=== PATIENT | male | born 1965 | race Hispanic/Latino ===

== ENCOUNTER → 2019-01-18 | Outpatient (CLI) | payer BC | END | disposition home or self-care (01) | LOC: SHCH 09:52 | PROVIDERS: ATTEND Internal Medicine Cardiovascular Disease | DX: I11.9 Hypertensive heart disease without heart failure (principal) | CPT/HCPCS: 93306 ==

== ENCOUNTER 2020-01-29 15:23 | Inpatient (IN) | payer BC ==
[~2020-01-29] VITALS: Ht 180.3 cm; Wt 87.6 kg
[2020-01-29 16:10] LABS: BASOPHILS % (AUTO) 0.2 % (0.0-5.0); EOSINOPHILS % (AUTO) 0.1 % (0.0-8.0); HEMATOCRIT 45.7 % (42-54); LYMPHOCYTES % (AUTO) 4.7 % (21.0-51.0); MEAN CORPUSCULAR HEMOGLOBIN 26.1 pg (27.0-33.0); MEAN CORPUSCULAR HGB CONC 33.7 g/dL (32.0-36.0); MEAN CORPUSCULAR VOLUME 77.5 fL (79-99); MONOCYTES % (AUTO) 2.5 % (3.0-13.0); NEUTROPHILS % (AUTO) 92.3 % (40.0-77.0); PLATELET COUNT (AUTO) 323 K/uL (130-400); RED CELL DISTRIBUTION WIDTH 14.2 % (11.0-15.5); WHITE BLOOD COUNT (AUTO) 15.6 K/uL (4.8-10.8)
[2020-01-29 16:25] LABS: INR 0.94 (0.85-1.15); PARTIAL THROMBOPLASTIN TIME 30.7 SEC (26.3-35.5); PROTHROMBIN TIME 10.2 SEC (9.6-11.6)
[2020-01-29] MEDS ORDERED: AZITHROMYCIN 500MG+NS 250ML 250 ML IV ONE (16:28)
[2020-01-29] MEDS ORDERED: CEFTRIAXONE SODIUM 1 GM ONE (16:28)
[2020-01-29] MEDS ORDERED: DEXAMETHASONE SOD PHOSPHATE 4 MG/ML 1ML VIAL ONE (16:28)
[2020-01-29] MEDS ORDERED: SODIUM CHLORIDE 0.9% 1000ML 1,000 ML IV ONE (16:28)
[2020-01-29 16:29] LABS: CARBON DIOXIDE 25 mmol/L (21-32); CHLORIDE 99 mmol/L (101-111); CREATININE 1.6 mg/dL (0.5-1.5); GLOMERULAR FILTR. RATE CALC 48 mL/min (>60); GLUCOSE,RANDOM 162 mg/dL (70-105); POTASSIUM 3.2 mmol/L (3.5-5.1); SODIUM SERUM 134 mmol/L (136-145); UREA NITROGEN, BLOOD 20 mg/dL (7-18)
[2020-01-29] MEDS ORDERED: SODIUM CHLORIDE 0.9% 100 ML IV ONE (16:29)
[2020-01-29 16:40] LABS: ALANINE AMINOTRANSFERASE 30 U/L (12-78); ASPARTATE AMINOTRANSFERASE 46 U/L (10-37); BILIRUBIN,TOTAL 0.2 mg/dL (0.2-1.0); CREATINE KINASE, TOTAL 237 U/L (21-232); MYOGLOBIN 212 ng/mL (10-92); TOTAL PROTEIN, SERUM 5.4 g/dL (6.0-8.3); TROPONIN I < 0.04 ng/mL (0.00-0.06)
[2020-01-29 16:56] LABS: APPEARANCE,URINE Cloudy (CLEAR); BILIRUBIN,URINE Negative (NEGATIVE); COLOR,URINE Yellow (YELLOW); GLUCOSE, URINE (UA) 500 mg/dL (NEGATIVE); KETONES,URINE Negative (NEGATIVE); LEUKOCYTE ESTERASE ,URINE Negative (NEGATIVE); NITRATE,URINE Negative (NEGATIVE); OCCULT BLOOD,URINE Moderate (NEGATIVE); PROTEIN,URINE >=1000 mg/dL (NEGATIVE)
[2020-01-29 17:07] LABS: BACTERIA,URINE Few /HPF (None Seen); WBC,URINE 0-1 /HPF (0-1)
[2020-01-29 17:08] LABS: SQUAMOUS EPITHELIAL CELL,UR Few /HPF (0-2)
[2020-01-29 17:09] LABS: AMORPHOUS SEDIMENT,UR Few /LPF (None Seen)
[2020-01-29 17:28] LABS: ABG BASE EXCESS -2.8 mmol/L (-2.0-3.0); ABG OXYGEN SATURATION 94.6 % (95.0-99.0); ABG PCO2 26 mmHg (35-48)
[2020-01-29 17:29] LABS: ALBUMIN 0.6 g/dL (3.5-5.0)
[2020-01-29] MEDS ORDERED: ACETAMINOPHEN EXTRA STRENGTH 500 MG TABLET ONE (17:45)
[2020-01-29] MEDS: SODIUM CHLORIDE 0.9% 1000ML 1,000 ML IV SCH (19:10)
[2020-01-29] MEDS ORDERED: LACTATED RINGERS 1000ML 1,000 ML IV SCH (19:15)
[2020-01-29] MEDS ORDERED: ERGOCALCIFEROL (VITAMIN D2) 50,000 UNIT CAPSULE PO ONE (19:15)
[2020-01-29] MEDS: CEFTRIAXONE SODIUM 1 GM IVP SCH (19:15)
[2020-01-29] MEDS ORDERED: ONDANSETRON HCL 4 MG/2 ML VIAL IV PRN (19:15)
[2020-01-29] MEDS ORDERED: ACETAMINOPHEN 325 MG TAB PO PRN (19:15)
[2020-01-29] MEDS ORDERED: ERGOCALCIFEROL (VITAMIN D2) 50,000 UNIT CAPSULE ONE (20:52)
[2020-01-29] MEDS ORDERED: DOXYCYCLINE HYCLATE 100 MG TABLET PO ONE (20:52)
[2020-01-29] MEDS ORDERED: ASCORBIC ACID 500 MG TAB ONE (20:52)
[2020-01-29] MEDS ORDERED: ZINC SULFATE 220 CAPSULE ONE (20:52)
[2020-01-29] MEDS ORDERED: LACTATED RINGERS 1000ML 1,000 ML IV ONE (20:53)
[2020-01-29] MEDS ORDERED: ENOXAPARIN SODIUM 40 MG/0.4 ML SYRINGE SQ ONE (20:53)
[2020-01-29] MEDS ORDERED: ASPIRIN 325 MG TABLET ONE (20:59)
[2020-01-29] MEDS: METHYLPREDNISOLONE SOD SUCC 40MG/ML 1ML IVP SCH (21:00)
[2020-01-29] MEDS: DOXYCYCLINE HYCLATE 100 MG TABLET PO SCH (21:00)
[2020-01-29] MEDS: POTASSIUM CHLORIDE 20 MEQ ERTAB PO SCH (22:30)
[2020-01-30 01:05] LABS: CARBON DIOXIDE 25 mmol/L (21-32); CHLORIDE 101 mmol/L (101-111); CREATININE 1.8 mg/dL (0.5-1.5); GLOMERULAR FILTR. RATE CALC 42 mL/min (>60); GLUCOSE,RANDOM 210 mg/dL (70-105); POTASSIUM 3.5 mmol/L (3.5-5.1); SODIUM SERUM 135 mmol/L (136-145); UREA NITROGEN, BLOOD 24 mg/dL (7-18)
[2020-01-30] MEDS: SODIUM CHLORIDE 0.9% 1000ML 1,000 ML IV SCH ×4 (01:50→21:24)
[2020-01-30] MEDS ORDERED: POTASSIUM CHLORIDE 10% ELIXIR 20 MEQ/15 ML UDCUP ONE (02:19)
[2020-01-30 02:25] LABS: ALANINE AMINOTRANSFERASE 28 U/L (12-78); ASPARTATE AMINOTRANSFERASE 44 U/L (10-37); BILIRUBIN,TOTAL 0.1 mg/dL (0.2-1.0); TOTAL PROTEIN, SERUM 5.2 g/dL (6.0-8.3)
[2020-01-30 02:30] LABS: ALBUMIN < 0.6 g/dL (3.5-5.0)
[2020-01-30 04:26] LABS: BASOPHILS % (AUTO) 0.1 % (0.0-5.0); HEMATOCRIT 44.5 % (42-54); LYMPHOCYTES % (AUTO) 3.8 % (21.0-51.0); MEAN CORPUSCULAR HEMOGLOBIN 25.8 pg (27.0-33.0); MEAN CORPUSCULAR HGB CONC 32.6 g/dL (32.0-36.0); MONOCYTES % (AUTO) 1.4 % (3.0-13.0); NEUTROPHILS % (AUTO) 94.3 % (40.0-77.0); PLATELET COUNT (AUTO) 327 K/uL (130-400); RED BLOOD CELL COUNT(AUTO) 5.63 MIL/uL (4.50-6.20); RED CELL DISTRIBUTION WIDTH 14.4 % (11.0-15.5); WHITE BLOOD COUNT (AUTO) 14.6 K/uL (4.8-10.8)
[2020-01-30 04:48] LABS: HEMOGLOBIN A1C 7.5 % (4.0-6.0)
[2020-01-30] MEDS ORDERED: CEFTRIAXONE SODIUM 1 GM ONE (05:26)
[2020-01-30] MEDS ORDERED: METHYLPREDNISOLONE SOD SUCC 40MG/ML 1ML ONE ×2 (05:26→13:43)
[2020-01-30 05:42] LABS: ALANINE AMINOTRANSFERASE 32 U/L (12-78); ASPARTATE AMINOTRANSFERASE 56 U/L (10-37); CARBON DIOXIDE 25 mmol/L (21-32); CHLORIDE 103 mmol/L (101-111); CREATININE 1.8 mg/dL (0.5-1.5); GLOMERULAR FILTR. RATE CALC 42 mL/min (>60); GLUCOSE,RANDOM 205 mg/dL (70-105); HDL CHOLESTEROL 26 mg/dL (29-71); LACTATE DEHYDROGENASE 481 U/L (81-234); LDL DIRECT 239 mg/dL (0-99); POTASSIUM 3.4 mmol/L (3.5-5.1); SODIUM SERUM 136 mmol/L (136-145); TOTAL PROTEIN, SERUM 5.2 g/dL (6.0-8.3); TRIGLYCERIDES 243 mg/dL (30-200); UREA NITROGEN, BLOOD 24 mg/dL (7-18)
[2020-01-30 05:46] LABS: ALBUMIN < 0.6 g/dL (3.5-5.0)
[2020-01-30 05:47] LABS: BILIRUBIN,TOTAL 0.1 mg/dL (0.2-1.0)
[2020-01-30] MEDS: CEFTRIAXONE SODIUM 1 GM IVP SCH ×2 (07:15→18:38)
[2020-01-30 08:19] LABS: CHOLESTEROL 280 mg/dL (<200)
[2020-01-30] MEDS ORDERED: ASCORBIC ACID 500 MG TAB ONE (08:32)
[2020-01-30] MEDS ORDERED: DOXYCYCLINE HYCLATE 100 MG TABLET PO ONE (08:32)
[2020-01-30] MEDS ORDERED: ASPIRIN 325 MG TABLET ONE (08:33)
[2020-01-30] MEDS: ASCORBIC ACID 500 MG TAB PO SCH (09:00)
[2020-01-30] MEDS ORDERED: ENOXAPARIN SODIUM 40 MG/0.4 ML SYRINGE SQ SCH (09:00)
[2020-01-30] MEDS: ASPIRIN 325 MG TABLET PO SCH (09:00)
[2020-01-30] MEDS: DOXYCYCLINE HYCLATE 100 MG TABLET PO SCH ×2 (09:00→20:56)
[2020-01-30] MEDS: METHYLPREDNISOLONE SOD SUCC 40MG/ML 1ML IVP SCH ×3 (09:00→20:57)
[2020-01-30] MEDS: ENOXAPARIN SODIUM 40 MG/0.4 ML SYRINGE SQ SCH (09:00)
[2020-01-30] MEDS: ZINC SULFATE 220 CAPSULE PO SCH (12:00)
[2020-01-30] MEDS ORDERED: ZINC SULFATE 220 CAPSULE ONE (12:22)
[2020-01-30] MEDS: PHARMACY COMMUNICATION MISC SCH ×2 (14:15→15:15)
--- NOTE | 2020-01-30 14:53 | NUR ---
DR. ZENDEJAS PAGED DR. ZENDEJAS REGARDING STAT CONSULT FROM DR. SAUCEDO. SPOKE WITH DR. ZENDEJAS WHO ADVISED HE WOULD SEE THE PATIENT TOMORROW.
[2020-01-30 16:00] VITALS: BP 123/79
[2020-01-30] MEDS ORDERED: PHARMACY COMMUNICATION MISC SCH (16:45)
--- NOTE | 2020-01-30 17:30 | NUR ---
ELEANOR- SPOKE TO SPOUSE FOR DC PLANNING RODRIGUEZ ROBERTSON STATES PT IS ACTIVE, INDEPENDENT, NO DME, EMPLOYED BY [employer], [facility], NO DME- STATES SEES DR. VERGARA ONCE A YEAR, BUT DOES NOT SEE OTHER MD'S. PHONE NUMBER UPDATED ON FACE SHEET- STATES PATIENT HAS PHONE WITH HIM BUT HIS PLAN 01/28 AND HE NEEDS TO RENEW THE MONTH- NOT SURE IF THEY WILL DO IT WHILE HE IS IN THE HOSPITAL. GAVE HER THE ROOM NUMBER AND, NURSING STATION NUMBER TO REACH HIM DCP IS HOME, SPOUSE TO PROVIDE TRANSPORT Addendum: 01/31/20 at 0850 by KHADRA TONEY RN Amended: Links added.
[2020-01-30 20:20] VITALS: BP 138/80
[2020-01-30] MEDS: POTASSIUM CHLORIDE 20 MEQ ERTAB PO SCH (21:04)
[2020-01-30] MEDS ORDERED: INSULIN HUMULIN R 100 UNIT/ML 3ML ONE (22:36)
[2020-01-30] MEDS: INSULIN HUMULIN R 100 UNIT/ML 3ML SQ SCH (22:40)
[2020-01-31] VITALS (7 sets, daily range): BP systolic 116–139; BP diastolic 61–83
[2020-01-31 02:32] LABS: BASOPHILS % (AUTO) 0.1 % (0.0-5.0); HEMATOCRIT 39.2 % (42-54); LYMPHOCYTES % (AUTO) 1.8 % (21.0-51.0); MEAN CORPUSCULAR HEMOGLOBIN 26.3 pg (27.0-33.0); MEAN CORPUSCULAR HGB CONC 34.2 g/dL (32.0-36.0); MEAN CORPUSCULAR VOLUME 76.9 fL (79-99); MONOCYTES % (AUTO) 1.5 % (3.0-13.0); NEUTROPHILS % (AUTO) 96.1 % (40.0-77.0); PLATELET COUNT (AUTO) 435 K/uL (130-400); RED CELL DISTRIBUTION WIDTH 14.5 % (11.0-15.5)
[2020-01-31 02:46] LABS: ALANINE AMINOTRANSFERASE 35 U/L (12-78); ASPARTATE AMINOTRANSFERASE 38 U/L (10-37); BILIRUBIN,TOTAL 0.1 mg/dL (0.2-1.0); CARBON DIOXIDE 22 mmol/L (21-32); CHLORIDE 102 mmol/L (101-111); CREATININE 1.8 mg/dL (0.5-1.5); GLOMERULAR FILTR. RATE CALC 42 mL/min (>60); GLUCOSE,RANDOM 282 mg/dL (70-105); LACTATE DEHYDROGENASE 349 U/L (81-234); POTASSIUM 3.9 mmol/L (3.5-5.1); SODIUM SERUM 134 mmol/L (136-145); UREA NITROGEN, BLOOD 36 mg/dL (7-18)
[2020-01-31 02:52] LABS: ALBUMIN < 0.6 g/dL (3.5-5.0)
[2020-01-31] MEDS: SODIUM CHLORIDE 0.9% 1000ML 1,000 ML IV SCH ×2 (04:33→10:45)
[2020-01-31] MEDS: CEFTRIAXONE SODIUM 1 GM IVP SCH ×2 (07:27→18:30)
[2020-01-31] MEDS: ENOXAPARIN SODIUM 40 MG/0.4 ML SYRINGE SQ SCH (08:50)
[2020-01-31] MEDS: ASCORBIC ACID 500 MG TAB PO SCH (08:50)
[2020-01-31] MEDS: METHYLPREDNISOLONE SOD SUCC 40MG/ML 1ML IVP SCH ×3 (08:50→21:08)
[2020-01-31] MEDS: DOXYCYCLINE HYCLATE 100 MG TABLET PO SCH ×2 (08:50→21:08)
[2020-01-31] MEDS: ASPIRIN 325 MG TABLET PO SCH (08:51)
[2020-01-31] MEDS ORDERED: ENOXAPARIN SODIUM 0.5 MG/KG EACH SQ SCH (09:00)
[2020-01-31] MEDS: INSULIN HUMULIN R 100 UNIT/ML 3ML SQ SCH ×3 (11:48→21:07)
[2020-01-31] MEDS: ZINC SULFATE 220 CAPSULE PO SCH (11:49)
[2020-01-31] MEDS: POTASSIUM CHLORIDE 20 MEQ ERTAB PO SCH (21:14)
[2020-02-01 04:16] VITALS: BP 126/74
[2020-02-01 05:45] LABS: BASOPHILS % (AUTO) 0.1 % (0.0-5.0); HEMATOCRIT 40.4 % (42-54); LYMPHOCYTES % (AUTO) 2.7 % (21.0-51.0); MEAN CORPUSCULAR HEMOGLOBIN 25.9 pg (27.0-33.0); MEAN CORPUSCULAR HGB CONC 33.2 g/dL (32.0-36.0); MONOCYTES % (AUTO) 2.2 % (3.0-13.0); PLATELET COUNT (AUTO) 414 K/uL (130-400); RED BLOOD CELL COUNT(AUTO) 5.18 MIL/uL (4.50-6.20); RED CELL DISTRIBUTION WIDTH 14.9 % (11.0-15.5); WHITE BLOOD COUNT (AUTO) 22.3 K/uL (4.8-10.8)
[2020-02-01] MEDS: CEFTRIAXONE SODIUM 1 GM IVP SCH ×2 (05:45→18:37)
[2020-02-01 06:07] LABS: ALANINE AMINOTRANSFERASE 50 U/L (12-78); ASPARTATE AMINOTRANSFERASE 60 U/L (10-37); BILIRUBIN,TOTAL 0.1 mg/dL (0.2-1.0); CARBON DIOXIDE 19 mmol/L (21-32); CHLORIDE 107 mmol/L (101-111); CREATININE 1.3 mg/dL (0.5-1.5); GLOMERULAR FILTR. RATE CALC 61 mL/min (>60); GLUCOSE,RANDOM 158 mg/dL (70-105); LACTATE DEHYDROGENASE 355 U/L (81-234); POTASSIUM 3.7 mmol/L (3.5-5.1); SODIUM SERUM 137 mmol/L (136-145); TOTAL PROTEIN, SERUM 5.1 g/dL (6.0-8.3); UREA NITROGEN, BLOOD 35 mg/dL (7-18)
[2020-02-01 06:25] LABS: ALBUMIN < 0.6 g/dL (3.5-5.0)
[2020-02-01] MEDS: INSULIN HUMULIN R 100 UNIT/ML 3ML SQ SCH ×4 (06:55→21:13)
[2020-02-01] MEDS: DOXYCYCLINE HYCLATE 100 MG TABLET PO SCH ×2 (08:29→21:11)
[2020-02-01] MEDS: METHYLPREDNISOLONE SOD SUCC 40MG/ML 1ML IVP SCH ×3 (08:29→21:10)
[2020-02-01] MEDS: ASCORBIC ACID 500 MG TAB PO SCH (08:30)
[2020-02-01] MEDS: ASPIRIN 325 MG TABLET PO SCH (08:30)
[2020-02-01] MEDS: ENOXAPARIN SODIUM 40 MG/0.4 ML SYRINGE SQ SCH (08:31)
[2020-02-01 08:56] VITALS: BP 122/80
[2020-02-01] MEDS: ZINC SULFATE 220 CAPSULE PO SCH (11:33)
[2020-02-01 12:02] VITALS: BP 125/75
[2020-02-01 16:49] VITALS: BP 125/74
[2020-02-01 20:18] VITALS: BP 118/75
[2020-02-01 23:57] VITALS: BP 137/68
[2020-02-02 03:47] VITALS: BP 130/73
[2020-02-02] MEDS: CEFTRIAXONE SODIUM 1 GM IVP SCH ×2 (05:29→20:02)
[2020-02-02 07:29] VITALS: BP 121/79
[2020-02-02] MEDS: ASPIRIN 325 MG TABLET PO SCH (08:40)
[2020-02-02] MEDS: METHYLPREDNISOLONE SOD SUCC 40MG/ML 1ML IVP SCH ×3 (08:40→20:09)
[2020-02-02] MEDS: DOXYCYCLINE HYCLATE 100 MG TABLET PO SCH ×2 (08:40→20:10)
[2020-02-02] MEDS: ASCORBIC ACID 500 MG TAB PO SCH (08:40)
[2020-02-02] MEDS: ENOXAPARIN SODIUM 40 MG/0.4 ML SYRINGE SQ SCH (08:41)
[2020-02-02] MEDS: INSULIN HUMULIN R 100 UNIT/ML 3ML SQ SCH ×4 (08:44→20:36)
[2020-02-02 11:00] VITALS: BP 125/74
[2020-02-02] MEDS ORDERED: COMPOUND IV REFRIGERATED 1 EACH IVSOLN MISC PRN (11:30)
[2020-02-02] MEDS ORDERED: REMDESIVIR (EUA) 520 200 MG in SODIUM CHLORIDE 0.9% 250 ML IV SCH (12:00)
[2020-02-02] MEDS: ZINC SULFATE 220 CAPSULE PO SCH (12:22)
[2020-02-02] MEDS: PHARMACY COMMUNICATION** REMDESIVIR ORDER MISC SCH ×2 (12:34→19:49)
[2020-02-02] MEDS ORDERED: FUROSEMIDE 10 MG/ML 4ML VIAL IV SCH (13:30)
[2020-02-02] MEDS ORDERED: SODIUM CHLORIDE 0.9% 250 ML IV ONE (15:49)
[2020-02-02 16:10] VITALS: BP 129/78
[2020-02-02 19:58] VITALS: BP 136/88
[2020-02-03 01:16] VITALS: BP 145/94
[2020-02-03] MEDS: PHARMACY COMMUNICATION** REMDESIVIR ORDER MISC SCH ×3 (02:42→18:18)
[2020-02-03 04:05] VITALS: BP 153/92
[2020-02-03 05:17] LABS: BASOPHILS % (AUTO) 0.1 % (0.0-5.0); HEMATOCRIT 41.2 % (42-54); LYMPHOCYTES % (AUTO) 5.3 % (21.0-51.0); MEAN CORPUSCULAR HEMOGLOBIN 25.6 pg (27.0-33.0); MEAN CORPUSCULAR HGB CONC 33.3 g/dL (32.0-36.0); MEAN CORPUSCULAR VOLUME 76.9 fL (79-99); MONOCYTES % (AUTO) 7.8 % (3.0-13.0); NEUTROPHILS % (AUTO) 84.5 % (40.0-77.0); PLATELET COUNT (AUTO) 569 K/uL (130-400); RED BLOOD CELL COUNT(AUTO) 5.36 MIL/uL (4.50-6.20); RED CELL DISTRIBUTION WIDTH 14.5 % (11.0-15.5); WHITE BLOOD COUNT (AUTO) 12.7 K/uL (4.8-10.8)
[2020-02-03 05:36] LABS: B-TYPE NATRIURETIC PEPTIDE 222 pg/mL (0-100)
[2020-02-03] MEDS: CEFTRIAXONE SODIUM 1 GM IVP SCH ×2 (06:20→18:43)
[2020-02-03 06:22] LABS: ALBUMIN 0.6 g/dL (3.5-5.0); BILIRUBIN,TOTAL 0.1 mg/dL (0.2-1.0); CRP QUANTITATIVE 19.8 mg/L (0.00-9.0); POTASSIUM 3.4 mmol/L (3.5-5.1); TOTAL PROTEIN, SERUM 4.9 g/dL (6.0-8.3)
[2020-02-03] MEDS: INSULIN HUMULIN R 100 UNIT/ML 3ML SQ SCH ×4 (06:32→20:23)
[2020-02-03 07:31] VITALS: BP 150/87
[2020-02-03] MEDS: ASPIRIN 325 MG TABLET PO SCH (08:14)
[2020-02-03] MEDS: METHYLPREDNISOLONE SOD SUCC 40MG/ML 1ML IVP SCH ×3 (08:14→20:21)
[2020-02-03] MEDS: ENOXAPARIN SODIUM 40 MG/0.4 ML SYRINGE SQ SCH (08:15)
[2020-02-03] MEDS: ASCORBIC ACID 500 MG TAB PO SCH (08:15)
[2020-02-03] MEDS: DOXYCYCLINE HYCLATE 100 MG TABLET PO SCH ×2 (08:15→20:21)
[2020-02-03 10:55] VITALS: BP 161/94
[2020-02-03] MEDS: REMDESIVIR (EUA) 520 100 MG in SODIUM CHLORIDE 0.9% 250 ML IV SCH (12:57)
[2020-02-03 15:45] VITALS: BP 157/96
[2020-02-03 20:24] VITALS: BP 148/94
[2020-02-04] VITALS (7 sets, daily range): BP systolic 121–165; BP diastolic 79–96
[2020-02-04 04:41] LABS: BASOPHILS % (AUTO) 0.2 % (0.0-5.0); HEMATOCRIT 45.3 % (42-54); LYMPHOCYTES % (AUTO) 5.4 % (21.0-51.0); MEAN CORPUSCULAR HEMOGLOBIN 25.8 pg (27.0-33.0); MEAN CORPUSCULAR HGB CONC 33.6 g/dL (32.0-36.0); MEAN CORPUSCULAR VOLUME 76.9 fL (79-99); MONOCYTES % (AUTO) 5.8 % (3.0-13.0); PLATELET COUNT (AUTO) 674 K/uL (130-400); RED BLOOD CELL COUNT(AUTO) 5.89 MIL/uL (4.50-6.20); RED CELL DISTRIBUTION WIDTH 14.6 % (11.0-15.5); WHITE BLOOD COUNT (AUTO) 19.4 K/uL (4.8-10.8)
[2020-02-04 05:06] LABS: ALBUMIN 0.7 g/dL (3.5-5.0); BILIRUBIN,TOTAL 0.1 mg/dL (0.2-1.0); CRP QUANTITATIVE 13.1 mg/L (0.00-9.0); POTASSIUM 3.2 mmol/L (3.5-5.1); THYROID STIMULATING HORMONE 2.03 uIU/mL (0.36-3.74); TOTAL PROTEIN, SERUM 5.3 g/dL (6.0-8.3)
[2020-02-04] MEDS: CEFTRIAXONE SODIUM 1 GM IVP SCH ×2 (07:15→20:39)
[2020-02-04] MEDS: INSULIN HUMULIN R 100 UNIT/ML 3ML SQ SCH ×4 (07:30→20:41)
--- NOTE | 2020-02-04 08:10 | NUR ---
NOTE AAOX3. DENIES PAIN OR DISCOMFORT JUST C/O SWELLING TO UPPER EXTREMITIES BILATERALLY. ALSO PITTING EDEMA NOTED TO TORSO PENDING EDEMA IF FROM LAYING IN BED IN ONE POSITION ONLY. PATIENT CAME N WITH HYPOXIA DUE TO COVID 19 INFECTION. HE HAS RECEIVED PLASMA AND CURRENTLY RECEIVING REMDESIVIR. STUDIES WERE DONE TO RULE OUT THROMBOSIS IN PORTAL VEIN OR BUE AND ALL TESTS WITH NEGATIVE FINDINGS. HIS ALBUMIN IS VERY LOW AT 0.7, THIS IS TRENDING UP FROM 0.6. WILL CHECK ABOUT DIETARY CONSULT FOR MALNUTRITION. PATIENT STATES HE HAD BEEN FEELING SICK FOR ONE WEEK PRIOR TO COMING TO HOSPITAL AND DID NOT EAT FOR ONE WHOLE WEEK.
[2020-02-04] MEDS: DOXYCYCLINE HYCLATE 100 MG TABLET PO SCH ×2 (09:37→20:41)
[2020-02-04] MEDS: ASPIRIN 325 MG TABLET PO SCH (09:37)
[2020-02-04] MEDS: ENOXAPARIN SODIUM 40 MG/0.4 ML SYRINGE SQ SCH (09:37)
[2020-02-04] MEDS: METHYLPREDNISOLONE SOD SUCC 40MG/ML 1ML IVP SCH ×3 (09:37→20:42)
[2020-02-04] MEDS: ASCORBIC ACID 500 MG TAB PO SCH (09:37)
[2020-02-04] MEDS: REMDESIVIR (EUA) 520 100 MG in SODIUM CHLORIDE 0.9% 250 ML IV SCH (12:55)
--- NOTE | 2020-02-04 16:59 | NUR ---
RD NOTIFICATION RD contacted by RN about previous protein supplementation evaluation. Previous order not received. Pt 75gm CC diet order in place. PO intake at 100%. Alb 0.7, WBC 19.4, K 3.2, BUN 36, BG 127. Recommend 60mL ProMod BID. RD to continue to monitor. Please notify as additional nutrition concerns arise. Thank you.
--- NOTE | 2020-02-04 17:17 | NUR ---
NOTE HAS BEEN STABLE, NO DISTRESS OR SOB. NO INCREASED SWELLING TO UPPER EXTREMITIES NOTED. SPOKE TO [employer]ING STRIP GAUGER ABOUT PROTEIN SUPPLEMENTS PER MD ORDERS YESTERDAY AND SHE WILL PLACE ORDER FOR SUPPLEMENTS TO BE DELIVERED. PATIENT MADE AWARE.
[2020-02-05 03:38] VITALS: BP 152/91
[2020-02-05 04:45] LABS: BASOPHILS % (AUTO) 0.1 % (0.0-5.0); HEMATOCRIT 40.9 % (42-54); LYMPHOCYTES % (AUTO) 4.5 % (21.0-51.0); MEAN CORPUSCULAR HEMOGLOBIN 25.5 pg (27.0-33.0); MEAN CORPUSCULAR VOLUME 77.3 fL (79-99); MONOCYTES % (AUTO) 4.8 % (3.0-13.0); NEUTROPHILS % (AUTO) 88.5 % (40.0-77.0); PLATELET COUNT (AUTO) 568 K/uL (130-400); RED BLOOD CELL COUNT(AUTO) 5.29 MIL/uL (4.50-6.20); RED CELL DISTRIBUTION WIDTH 14.7 % (11.0-15.5); WHITE BLOOD COUNT (AUTO) 16.1 K/uL (4.8-10.8)
[2020-02-05 05:21] LABS: ALBUMIN 0.6 g/dL (3.5-5.0); BILIRUBIN,TOTAL 0.1 mg/dL (0.2-1.0); CRP QUANTITATIVE 11.4 mg/L (0.00-9.0); POTASSIUM 3.7 mmol/L (3.5-5.1); TOTAL PROTEIN, SERUM 4.4 g/dL (6.0-8.3)
[2020-02-05] MEDS: METHYLPREDNISOLONE SOD SUCC 40MG/ML 1ML IVP SCH ×3 (05:58→21:17)
[2020-02-05] MEDS: INSULIN HUMULIN R 100 UNIT/ML 3ML SQ SCH ×4 (06:24→21:18)
[2020-02-05 08:00] VITALS: BP 139/85
[2020-02-05] MEDS: ASCORBIC ACID 500 MG TAB PO SCH (09:10)
[2020-02-05] MEDS: DOXYCYCLINE HYCLATE 100 MG TABLET PO SCH (09:11)
[2020-02-05] MEDS: CEFTRIAXONE SODIUM 1 GM IVP SCH (09:11)
[2020-02-05] MEDS: ENOXAPARIN SODIUM 40 MG/0.4 ML SYRINGE SQ SCH (09:11)
[2020-02-05] MEDS: ASPIRIN 325 MG TABLET PO SCH (09:11)
[2020-02-05 11:00] VITALS: BP 143/86
[2020-02-05] MEDS: REMDESIVIR (EUA) 520 100 MG in SODIUM CHLORIDE 0.9% 250 ML IV SCH (13:39)
[2020-02-05 16:00] VITALS: BP 158/96
[2020-02-05 19:10] LABS: PROTEIN,URINE RANDOM 615.5 mg/dL (0-11.9)
[2020-02-05 19:56] VITALS: BP 146/94
--- NOTE | 2020-02-05 20:03 | NUR ---
ADDENDUM TO ASSESSMENT BILATERAL UPPER EXTREMITIES WITH EDEMA NOTED,MARKED EDEMA TO RIGHT UPPER EXTREMITY ,GREATER SRINIVASA N LEFT Addendum: 02/05/20 at 2235 by JOSE EDUARDO SHIRLEY RN RN Amended: Links added.
[2020-02-05 23:23] VITALS: BP 148/91
[2020-02-06 03:29] VITALS: BP 148/86
[2020-02-06 04:05] LABS: APPEARANCE,URINE Clear (CLEAR); BILIRUBIN,URINE Negative (NEGATIVE); COLOR,URINE Yellow (YELLOW); GLUCOSE, URINE (UA) >=1000 mg/dL (NEGATIVE); KETONES,URINE Negative (NEGATIVE); LEUKOCYTE ESTERASE ,URINE Negative (NEGATIVE); NITRATE,URINE Negative (NEGATIVE); OCCULT BLOOD,URINE Moderate (NEGATIVE); PH,URINE 5.5 (5.0-8.0); PROTEIN,URINE >=1000 mg/dL (NEGATIVE); UROBILINOGEN,URINE 0.2 mg/dL (0.2-1.0)
[2020-02-06 05:07] LABS: BACTERIA,URINE Few /HPF (None Seen); MUCUS,URINE Moderate LPF (None Seen); SQUAMOUS EPITHELIAL CELL,UR Moderate /HPF (0-2); WBC,URINE None Seen /HPF (0-1)
[2020-02-06] MEDS: METHYLPREDNISOLONE SOD SUCC 40MG/ML 1ML IVP SCH (05:28)
[2020-02-06 05:34] LABS: HEMATOCRIT 41.6 % (42-54); MEAN CORPUSCULAR HEMOGLOBIN 25.8 pg (27.0-33.0); MEAN CORPUSCULAR HGB CONC 32.9 g/dL (32.0-36.0); MEAN CORPUSCULAR VOLUME 78.5 fL (79-99); PLATELET COUNT (AUTO) 671 K/uL (130-400); RED CELL DISTRIBUTION WIDTH 14.8 % (11.0-15.5); WHITE BLOOD COUNT (AUTO) 19.6 K/uL (4.8-10.8)
[2020-02-06] MEDS: INSULIN HUMULIN R 100 UNIT/ML 3ML SQ SCH ×4 (05:52→21:37)
[2020-02-06 06:19] LABS: ALANINE AMINOTRANSFERASE 185 U/L (12-78); ALBUMIN 0.7 g/dL (3.5-5.0); ASPARTATE AMINOTRANSFERASE 92 U/L (10-37); BILIRUBIN,DIRECT < 0.1 mg/dL (0.0-0.3); BILIRUBIN,TOTAL 0.1 mg/dL (0.2-1.0); CARBON DIOXIDE 25 mmol/L (21-32); CHLORIDE 106 mmol/L (101-111); CREATININE 0.9 mg/dL (0.5-1.5); GLOMERULAR FILTR. RATE CALC 93 mL/min (>60); GLUCOSE,RANDOM 161 mg/dL (70-105); LACTATE DEHYDROGENASE 413 U/L (81-234); PHOSPHORUS 4.1 mg/dL (2.5-4.9); POTASSIUM 3.9 mmol/L (3.5-5.1); SODIUM SERUM 138 mmol/L (136-145); TOTAL PROTEIN, SERUM 4.5 g/dL (6.0-8.3); UREA NITROGEN, BLOOD 36 mg/dL (7-18)
[2020-02-06 08:00] VITALS: BP 138/89
[2020-02-06] MEDS: ASCORBIC ACID 500 MG TAB PO SCH (08:43)
[2020-02-06] MEDS: ASPIRIN 325 MG TABLET PO SCH (08:43)
[2020-02-06] MEDS: FOLIC ACID/VITAMIN B COMP W-C 1 CAP TAB PO SCH (08:43)
[2020-02-06] MEDS: ENOXAPARIN SODIUM 40 MG/0.4 ML SYRINGE SQ SCH ×2 (08:44→19:35)
[2020-02-06 11:00] VITALS: BP 127/68
[2020-02-06] MEDS: REMDESIVIR (EUA) 520 100 MG in SODIUM CHLORIDE 0.9% 250 ML IV SCH (12:36)
[2020-02-06 13:23] LABS: BASOPHILS % (AUTO) 0.3 % (0.0-5.0); EOSINOPHILS % (AUTO) 0.1 % (0.0-8.0); LYMPHOCYTES % (AUTO) 3.7 % (21.0-51.0); MONOCYTES % (AUTO) 3.4 % (3.0-13.0); NEUTROPHILS % (AUTO) 90.8 % (40.0-77.0)
[2020-02-06] MEDS ORDERED: DEXAMETHASONE 4 MG TAB PO SCH (14:30)
[2020-02-06 16:00] VITALS: BP 164/98
[2020-02-06 18:31] LABS: PROTEIN,URINE RANDOM 439.5 mg/dL (0-11.9)
--- NOTE | 2020-02-06 20:00 | NUR ---
PTS CALLED. GIVEN UPDATE. PT IS ROOM AIR. NO DISTRESS NOTED. CONTINUED ON ABTS. ABLE TO AMBULATE
[2020-02-06 20:01] VITALS: BP 148/95
[2020-02-06 23:25] VITALS: BP 158/96
[2020-02-07 03:46] VITALS: BP 165/92
[2020-02-07] MEDS: INSULIN HUMULIN R 100 UNIT/ML 3ML SQ SCH ×4 (05:34→21:03)
[2020-02-07 06:48] LABS: HEMATOCRIT 41.1 % (42-54); MEAN CORPUSCULAR HEMOGLOBIN 26.1 pg (27.0-33.0); MEAN CORPUSCULAR HGB CONC 32.8 g/dL (32.0-36.0); MEAN CORPUSCULAR VOLUME 79.5 fL (79-99); RED BLOOD CELL COUNT(AUTO) 5.17 MIL/uL (4.50-6.20); RED CELL DISTRIBUTION WIDTH 14.7 % (11.0-15.5); WHITE BLOOD COUNT (AUTO) 16.9 K/uL (4.8-10.8)
[2020-02-07 07:29] LABS: CREATININE 0.9 mg/dL (0.5-1.5)
[2020-02-07] MEDS: FOLIC ACID/VITAMIN B COMP W-C 1 CAP TAB PO SCH (08:36)
[2020-02-07] MEDS: ASCORBIC ACID 500 MG TAB PO SCH (08:36)
[2020-02-07] MEDS: ASPIRIN 325 MG TABLET PO SCH (08:36)
[2020-02-07] MEDS: ENOXAPARIN SODIUM 40 MG/0.4 ML SYRINGE SQ SCH ×2 (08:37→21:00)
[2020-02-07 09:09] VITALS: BP 151/93
[2020-02-07 12:16] VITALS: BP 139/76
[2020-02-07] MEDS: LISINOPRIL 10 MG TABLET PO SCH (12:27)
[2020-02-07 12:43] LABS: ALBUMIN 0.7 g/dL (3.5-5.0); BILIRUBIN,TOTAL 0.1 mg/dL (0.2-1.0); TOTAL PROTEIN, SERUM 4.6 g/dL (6.0-8.3)
[2020-02-07 17:03] VITALS: BP 141/86
[2020-02-07 20:00] VITALS: BP 144/99
[2020-02-08] VITALS: BP 141/87
[2020-02-08 04:00] VITALS: BP 143/86
[2020-02-08 04:04] LABS: HEMATOCRIT 39.9 % (42-54); MEAN CORPUSCULAR HGB CONC 33.1 g/dL (32.0-36.0); MEAN CORPUSCULAR VOLUME 78.5 fL (79-99); RED BLOOD CELL COUNT(AUTO) 5.08 MIL/uL (4.50-6.20); RED CELL DISTRIBUTION WIDTH 14.8 % (11.0-15.5); WHITE BLOOD COUNT (AUTO) 13.6 K/uL (4.8-10.8)
[2020-02-08 04:13] LABS: CREATININE 0.8 mg/dL (0.5-1.5); POTASSIUM 3.4 mmol/L (3.5-5.1)
[2020-02-08] MEDS ORDERED: DEXTROSE 50%-WATER 50 ML DISP.SYRIN IV ONE (05:49)
--- NOTE | 2020-02-08 05:59 | NUR ---
HYPOGLYCEMIC EPISODE BLOOD SUGAR REPORTED TO BE AT 68. PT AWAKE, ALERT AND ORIENTED X3. OFFERED PT 2 CUPS OF APPLE JUICE, PEANUT BUTTER AND GRAHM CRACKERS. OBSERVED PT CONSUME THE X2 CUPS OF APPLE JUICE. PT NOE WELL. HE SAID HE WOULD EAT THE PEANUT BUTTER AND CRACKERS IN A WHILE, THAT HE FELT "RONEN". WILL RECHECK BLOOD SUGAR @0615.
[2020-02-08] MEDS: INSULIN HUMULIN R 100 UNIT/ML 3ML SQ SCH ×4 (06:54→21:54)
[2020-02-08 08:00] VITALS: BP 143/83
[2020-02-08] MEDS ORDERED: POTASSIUM CHLORIDE 10MEQ/100ML 100 ML IV PRN (08:00)
[2020-02-08] MEDS ORDERED: POTASSIUM CHLORIDE 10% ELIXIR 20 MEQ/15 ML UDCUP PO PRN (08:00)
[2020-02-08] MEDS ORDERED: LIDOCAINE HCL-MPF 1% 2ML VIAL IV PRN (08:00)
[2020-02-08] MEDS: ASCORBIC ACID 500 MG TAB PO SCH (09:05)
[2020-02-08] MEDS: FUROSEMIDE 20 MG TABLET PO SCH ×2 (09:05→20:17)
[2020-02-08] MEDS: POTASSIUM CHLORIDE 20 MEQ ERTAB PO PRN ×2 (09:05→11:55)
[2020-02-08] MEDS: LISINOPRIL 10 MG TABLET PO SCH (09:06)
[2020-02-08] MEDS: ASPIRIN 325 MG TABLET PO SCH (09:06)
[2020-02-08] MEDS: FOLIC ACID/VITAMIN B COMP W-C 1 CAP TAB PO SCH (09:06)
[2020-02-08] MEDS: ENOXAPARIN SODIUM 40 MG/0.4 ML SYRINGE SQ SCH ×2 (09:07→20:20)
[2020-02-08 12:00] VITALS: BP 103/78
--- NOTE | 2020-02-08 15:57 | NUR ---
RD FOLLOW UP NOTIFICATION for hypoalbuminemia received. Pt tolerating 75gm CCD. ProMod supplementation in place, RN to confirm if Pt is receiving/consuming. PO intake at 100%. Pt with episode of hypoglycemia. Pt also with increasing fluid retention, pending possible diuretic as medically feasible as per EMR. Recommend Glucerna BID Recommend sodium restricted General Heart Healthy Diet order RD to continue to monitor. Please notify as additional nutrition concerns arise. Thank you.
[2020-02-08 16:30] VITALS: BP 119/71
[2020-02-09] VITALS (7 sets, daily range): BP systolic 104–143; BP diastolic 55–86
[2020-02-09] MEDS: INSULIN HUMULIN R 100 UNIT/ML 3ML SQ SCH ×4 (05:40→20:06)
--- NOTE | 2020-02-09 05:41 | NUR ---
LOW BLOOD SUGAR BS 73. PROVIDED APPLE JUICE AND PEANUT BUTTER. WITNESSED THE PT CONSUME THE APPLE JUICE. PT REPORTS HE WOULD EAT THE PEANUT BUTTER LATER. PT REPORTS HE FEELS "FINE". WILL RETURN TO REASSES THE PT'S GLUCOSE LEVEL.
[2020-02-09 06:10] LABS: BASOPHILS % (AUTO) 0.2 % (0.0-5.0); EOSINOPHILS % (AUTO) 0.8 % (0.0-8.0); HEMATOCRIT 40.5 % (42-54); LYMPHOCYTES % (AUTO) 14.2 % (21.0-51.0); MEAN CORPUSCULAR HEMOGLOBIN 25.5 pg (27.0-33.0); MEAN CORPUSCULAR HGB CONC 31.9 g/dL (32.0-36.0); MEAN CORPUSCULAR VOLUME 80.2 fL (79-99); MONOCYTES % (AUTO) 6.4 % (3.0-13.0); NEUTROPHILS % (AUTO) 76.7 % (40.0-77.0); PLATELET COUNT (AUTO) 473 K/uL (130-400); RED BLOOD CELL COUNT(AUTO) 5.05 MIL/uL (4.50-6.20); RED CELL DISTRIBUTION WIDTH 15.4 % (11.0-15.5); WHITE BLOOD COUNT (AUTO) 14.1 K/uL (4.8-10.8)
[2020-02-09 06:31] LABS: ALBUMIN 0.7 g/dL (3.5-5.0); BILIRUBIN,TOTAL 0.2 mg/dL (0.2-1.0); CREATININE 0.9 mg/dL (0.5-1.5); POTASSIUM 3.4 mmol/L (3.5-5.1); TOTAL PROTEIN, SERUM 4.2 g/dL (6.0-8.3)
[2020-02-09 06:40] LABS: B-TYPE NATRIURETIC PEPTIDE 74 pg/mL (0-100)
[2020-02-09] MEDS: POTASSIUM CHLORIDE 20 MEQ ERTAB PO PRN ×2 (07:10→12:41)
[2020-02-09] MEDS: FOLIC ACID/VITAMIN B COMP W-C 1 CAP TAB PO SCH (09:51)
[2020-02-09] MEDS: ASCORBIC ACID 500 MG TAB PO SCH (09:51)
[2020-02-09] MEDS: ASPIRIN 325 MG TABLET PO SCH (09:51)
[2020-02-09] MEDS: LISINOPRIL 10 MG TABLET PO SCH (09:51)
[2020-02-09] MEDS: ENOXAPARIN SODIUM 40 MG/0.4 ML SYRINGE SQ SCH ×2 (09:52→19:46)
[2020-02-09] MEDS: FUROSEMIDE 20 MG TABLET PO SCH ×2 (09:53→19:46)
[2020-02-10 04:00] VITALS: BP 129/70
[2020-02-10] MEDS: INSULIN HUMULIN R 100 UNIT/ML 3ML SQ SCH (05:03)
[2020-02-10] MEDS ORDERED: LISI10TA7 PO (06:53)
[2020-02-10] MEDS ORDERED: ASPI-1005 PO (06:53)
[2020-02-10] MEDS ORDERED: FURO20TA6 PO (06:53)
[2020-02-10 07:00] VITALS: BP 138/76
[2020-02-10] MEDS: ASCORBIC ACID 500 MG TAB PO SCH (09:20)
[2020-02-10] MEDS: ASPIRIN 325 MG TABLET PO SCH (09:21)
[2020-02-10] MEDS: FOLIC ACID/VITAMIN B COMP W-C 1 CAP TAB PO SCH (09:21)
[2020-02-10] MEDS: LISINOPRIL 10 MG TABLET PO SCH (09:21)
[2020-02-10] MEDS: ENOXAPARIN SODIUM 40 MG/0.4 ML SYRINGE SQ SCH (09:22)
[2020-02-10] MEDS: FUROSEMIDE 20 MG TABLET PO SCH (09:22)
[2020-02-10] MEDS: POTASSIUM CHLORIDE 20 MEQ ERTAB PO PRN (09:24)
[2020-02-10 11:00] VITALS: BP 116/77
--- NOTE | 2020-02-10 13:34 | NUR ---
1330 pt discharged escorted off the floor via wheelchair to family that will transport him home. pt educated on preventing the spread of the Covid 19 virus.
== END 2020-02-10 13:30 | disposition home or self-care (01) | DRG 177 ==
LOC: EDH 15:23 → EDHIP 19:10 → 3BH 01-30 13:30 → 4BH 02-08 14:41
PROVIDERS: ADMIT Internal Medicine; ATTEND Internal Medicine
PROC: XW033E5 Introduction of Remdesivir Anti-infective into Peripheral Vein, Percutaneous Approach, New Technology Group 5 (ICD-10-PCS; principal; 2020-02-02)
PROC: XW13325 Transfusion of Convalescent Plasma (Nonautologous) into Peripheral Vein, Percutaneous Approach, New Technology Group 5 (ICD-10-PCS; 2020-02-02)
DX: U07.1 COVID-19 (principal); J96.01 Acute respiratory failure with hypoxia; E40 Kwashiorkor; J12.89 Other viral pneumonia; E87.1 Hypo-osmolality and hyponatremia; B17.9 Acute viral hepatitis, unspecified; N17.9 Acute kidney failure, unspecified; E87.6 Hypokalemia; I10 Essential (primary) hypertension; I25.10 Atherosclerotic heart disease of native coronary artery without angina pectoris; Z95.5 Presence of coronary angioplasty implant and graft; D64.9 Anemia, unspecified; E11.21 Type 2 diabetes mellitus with diabetic nephropathy; E11.51 Type 2 diabetes mellitus with diabetic peripheral angiopathy without gangrene; Z80.0 Family history of malignant neoplasm of digestive organs; Z82.49 Family history of ischemic heart disease and other diseases of the circulatory system; Z83.3 Family history of diabetes mellitus
CPT/HCPCS: 36415; 36430; 36600; 71045; 76705; 80048; 80053; 80061; 80074; 80076; 81001; 82435; 82550; 82570; 82728; 82803; 82947; 82948; 82977; 83036; 83605; 83615; 83735; 83874; 83880; 83935; 84100; 84132; 84145; 84156; 84295; 84300; 84443; 84484; 85018; 85025; 85027; 85378; 85610; 85730; 86140; 86900; 86901; 86927; 87040; 87088; 93005; 93970; 99291; G0378; J0456; J0696; J1100; J1650; J1815; J1940; J2920; J7030; J7050; J7070; J7120; J8540; U0003

== ENCOUNTER → 2021-11-09 | Outpatient (CLI) | payer OTHER ==
[~2021-11-09] MED LIST: AEC81 PO; ATOR-2 PO; EMPA25TA PO; FOLI1TAB85 PO; FURO20TA6 PO; LISI2.5T13 PO; METO-408 PO; PANT40TA54 PO; PRAS10TA6 PO
== END | disposition home or self-care (01) ==
LOC: RAH 11:02
PROVIDERS: ATTEND Internal Medicine Cardiovascular Disease
DX: I50.22 Chronic systolic (congestive) heart failure (principal)
CPT/HCPCS: 71046

== ENCOUNTER 2022-01-07 05:55 | Day surgery (SDC) | payer OTHER ==
[2022-01-03 12:40] VITALS: BP 148/72
[2022-01-03 13:12] LABS: BASOPHILS % (AUTO) 0.8 % (0.0-5.0); EOSINOPHILS % (AUTO) 1.3 % (0.0-8.0); HEMATOCRIT 44.1 % (42-54); LYMPHOCYTES % (AUTO) 20.3 % (21.0-51.0); MEAN CORPUSCULAR HEMOGLOBIN 23.8 pg (27.0-33.0); MEAN CORPUSCULAR HGB CONC 31.3 g/dL (32.0-36.0); MEAN CORPUSCULAR VOLUME 75.9 fL (79-99); MONOCYTES % (AUTO) 6.8 % (3.0-13.0); NEUTROPHILS % (AUTO) 70.4 % (40.0-77.0); PLATELET COUNT (AUTO) 238 K/uL (130-400); RED BLOOD CELL COUNT(AUTO) 5.81 MIL/uL (4.50-6.20); RED CELL DISTRIBUTION WIDTH 15.8 % (11.0-15.5); WHITE BLOOD COUNT (AUTO) 7.8 K/uL (4.8-10.8)
[2022-01-03 13:20] LABS: CREATININE 1.2 mg/dL (0.5-1.5); POTASSIUM 4.6 mmol/L (3.5-5.1)
[2022-01-03 13:20] LABS: APPEARANCE,URINE Clear (CLEAR); BILIRUBIN,URINE Negative (NEGATIVE); COLOR,URINE Yellow (YELLOW); GLUCOSE, URINE (UA) >=1000 mg/dL (NEGATIVE); KETONES,URINE Negative (NEGATIVE); LEUKOCYTE ESTERASE ,URINE Negative (NEGATIVE); NITRATE,URINE Negative (NEGATIVE); OCCULT BLOOD,URINE Trace (NEGATIVE); PH,URINE 5.5 (5.0-8.0); PROTEIN,URINE POS 2+ mg/dL (NEGATIVE); UROBILINOGEN,URINE 0.2 mg/dL (0.2-1.0)
[2022-01-03 13:27] LABS: INR 0.97 (0.85-1.15); PROTHROMBIN TIME 10.6 SEC (9.6-11.6)
[2022-01-03 13:28] LABS: PARTIAL THROMBOPLASTIN TIME 24.6 SEC (26.3-35.5)
[2022-01-03 14:33] LABS: WBC,URINE 0-1 /HPF (0-1)
[2022-01-03 14:34] LABS: BACTERIA,URINE Rare /HPF (None Seen); SQUAMOUS EPITHELIAL CELL,UR Few /HPF (0-2)
[2022-01-03 14:44] LABS: B-TYPE NATRIURETIC PEPTIDE 69 pg/mL (0-100)
[2022-01-07] VITALS (9 sets, daily range): BP systolic 113–171; BP diastolic 71–91
[~2022-01-07] VITALS: Ht 180.3 cm; Wt 81.3 kg
[~2022-01-07 05:55] MED LIST changes: +FURO20TA4 PO; -FURO20TA6 PO
[2022-01-07] MEDS ORDERED: 0.9% NACL 500ML IV.SOLN 500 ML IV SCH (06:00)
[2022-01-07] MEDS ORDERED: 0.9%NACL 1000ML 1,000 ML IV ONE (06:57)
[2022-01-07] MEDS ORDERED: SODIUM BICARB 50MEQ 50ML VIAL 50 ML ONE (07:05)
[2022-01-07] MEDS ORDERED: LIDOCAINE HCL 400MG/20ML VIAL ONE (07:05)
[2022-01-07] MEDS ORDERED: IOHEXOL 350 MG/ML 100ML INFUS..BTL IV ONE (07:05)
[2022-01-07] MEDS ORDERED: NITROGLYCERIN 50MG VIAL ONE (07:05)
[2022-01-07] MEDS ORDERED: NICARDIPINE 25MG INJ IV ONE (07:05)
[2022-01-07] MEDS ORDERED: HEPARIN 10,000 UNIT/10ML (1,000 UNIT/ML) VIAL ONE (07:05)
[2022-01-07] MEDS ORDERED: IOHEXOL-350 50ML VIAL IV ONE (07:05)
[2022-01-07] MEDS ORDERED: GABA300C PO (07:20)
[2022-01-07] MEDS ORDERED: MIDAZOLAM HCL 1 MG/ML 2ML VIAL ONE (07:32)
[2022-01-07] MEDS ORDERED: FENTANYL CITRATE PF 50 MCG/1 ML 2ML VIAL ONE (07:33)
[2022-01-07] MEDS ORDERED: 0.9%NACL 1000ML 1,000 ML IV SCH (09:30)
== END 2022-01-07 12:49 | disposition home or self-care (01) ==
LOC: DAH 05:55
PROVIDERS: ATTEND Internal Medicine Cardiovascular Disease
DX: I25.119 Atherosclerotic heart disease of native coronary artery with unspecified angina pectoris (principal); I25.82 Chronic total occlusion of coronary artery; I11.0 Hypertensive heart disease with heart failure; I50.22 Chronic systolic (congestive) heart failure; I25.2 Old myocardial infarction; E11.9 Type 2 diabetes mellitus without complications; E78.2 Mixed hyperlipidemia; Z79.82 Long term (current) use of aspirin; Z79.01 Long term (current) use of anticoagulants; Z79.899 Other long term (current) drug therapy; Z82.49 Family history of ischemic heart disease and other diseases of the circulatory system
CPT/HCPCS: 36415; 71045; 80048; 81001; 82948 ×2; 83880; 85025; 85610; 85730; 93005; 93458; A4215; A4216; A4221; A4222; A4223 ×3; A4606; A4663; C1760; C1769; C1894 ×3; J1644 ×3; J2250; J3010; J3490 ×4; J7030; Q9965; Q9967 ×2; 99156; 99157

== ENCOUNTER 2022-06-12 10:34 | Emergency (ER) | payer OTHER ==
[~2022-06-12] VITALS: Ht 180.3 cm; Wt 81.6 kg
[~2022-06-12 10:34] MED LIST changes: +GABA300C PO
[2022-06-12] MEDS ORDERED: CYCL10TA16 PO (11:38)
[2022-06-12 11:54] VITALS: BP 133/78
[2022-06-12] MEDS ORDERED: KETOROLAC 30MG VIAL (30MG/ML) IM ONE (12:00)
== END 2022-06-12 11:56 | disposition home or self-care (01) ==
LOC: EDH 10:34
DX: S29.012A Strain of muscle and tendon of back wall of thorax, initial encounter (principal); M54.50 Low back pain, unspecified; E11.9 Type 2 diabetes mellitus without complications; I10 Essential (primary) hypertension; I25.10 Atherosclerotic heart disease of native coronary artery without angina pectoris; Z79.82 Long term (current) use of aspirin; Z79.84 Long term (current) use of oral hypoglycemic drugs; Z79.899 Other long term (current) drug therapy; Z95.1 Presence of aortocoronary bypass graft; X50.9XXA Other and unspecified overexertion or strenuous movements or postures, initial encounter; Y93.89 Activity, other specified; Y92.89 Other specified places as the place of occurrence of the external cause; Y99.8 Other external cause status
CPT/HCPCS: 99283; 96372; J1885

== ENCOUNTER → 2022-06-18 | Outpatient (CLI) | payer OTHER ==
[~2022-06-18] MED LIST changes: +CYCL10TA16 PO
== END | disposition home or self-care (01) ==
LOC: SHCH 08:27
PROVIDERS: ATTEND Internal Medicine Cardiovascular Disease
DX: I11.9 Hypertensive heart disease without heart failure (principal); I25.5 Ischemic cardiomyopathy; E11.9 Type 2 diabetes mellitus without complications; E78.5 Hyperlipidemia, unspecified
CPT/HCPCS: 93306

== ENCOUNTER 2023-11-26 02:50 | Emergency (ER) | payer BC, OTHER ==
[~2023-11-26] VITALS: Ht 180.3 cm; Wt 82.1 kg
[2023-11-26] MEDS: ORPHENADRINE CITRATE 30 MG/ML ML IVP ONE (03:17)
[2023-11-26] MEDS: TRIAMCINOLONE ACETONIDE 40 MG/ML 1ML VIAL IM ONE (03:17)
[2023-11-26] MEDS: KETOROLAC 30MG VIAL (30MG/ML) IVP ONE (03:18)
[2023-11-26 03:53] VITALS: BP 142/72; PULSE 86; RESP 18; O2SAT 96
== END 2023-11-26 04:17 | disposition home or self-care (01) ==
LOC: EDH 02:50
DX: G89.29 Other chronic pain (principal); M54.50 Low back pain, unspecified; I10 Essential (primary) hypertension; E11.9 Type 2 diabetes mellitus without complications; E78.00 Pure hypercholesterolemia, unspecified; Z79.84 Long term (current) use of oral hypoglycemic drugs; Z79.82 Long term (current) use of aspirin; Z79.899 Other long term (current) drug therapy; Z98.890 Other specified postprocedural states
CPT/HCPCS: 99284; 96374; 96375; 96372; J3301; J1885; J2360

== ENCOUNTER 2025-02-16 08:35 | Emergency (ER) | payer OTHER, MEDICARE ==
[~2025-02-16] VITALS: Ht 180.3 cm; Wt 80.7 kg
[~2025-02-16 08:35] MED LIST changes: +PRAS10TA20 PO; -PRAS10TA6 PO
[2025-02-16 09:06] LABS: IMMATURE GRANULOCYTE ABSOLUTE 0.01 K/uL (0-1); NUCLEATED RED BLOOD CELLS 0.0 % (0.0-0.19); PLATELET COUNT (AUTO) 186 K/uL (130-400); RED BLOOD CELL COUNT(AUTO) 4.94 MIL/uL (4.50-6.20); RED CELL DISTRIBUTION WIDTH 14.5 % (11.0-15.5); WHITE BLOOD COUNT (AUTO) 7.4 K/uL (4.8-10.8)
[2025-02-16 09:14] LABS: CREATININE 1.1 mg/dL (0.5-1.3); GLOMERULAR FILTR. RATE CALC 76.0 mL/min (>90); GLUCOSE,RANDOM 142.0 mg/dL (70-105); SODIUM SERUM 138.0 mmol/L (136-145); UREA NITROGEN, BLOOD 20.0 mg/dL (7-18)
[2025-02-16 09:18] LABS: CREATINE KINASE, TOTAL 213.0 U/L (21-232)
[2025-02-16] MEDS: 0.9%NACL 1000ML 1,000 ML IV ONE (09:29)
--- NOTE | 2025-02-16 10:06 | HMCIMG ---
EXAM: CR Chest, 1 View. CLINICAL HISTORY: cp COMPARISON: None provided. FINDINGS: LUNGS: There is no mass, infiltrate, or acute pulmonary abnormality. PLEURAL SPACES: No pleural effusion or pneumothorax. MEDIASTINUM: The cardiomediastinal silhouette is within normal limits. BONES: No acute osseous abnormality. IMPRESSION: No acute cardiopulmonary pathology is evident. /[place]
--- NOTE | 2025-02-16 10:12 | EKG ---
[facility] Test Date: 2025-02-16 Test Time: 08:53:32 Pat Name: BENJIE KIDD Department: ED Room: Gender: M Review Specialist: [id number] : [id number] Requested By: RUBEN GARNICA Order Number: [id number] Reading MD: Bri Dong Measurements Intervals [place] Rate: 85 P: 77 [place]: 174 QRS: -36 QRSD: 122 T: 96 QT: 406 QTc: 484 Interpretive Statements Sinus rhythm Nonspecific IVCD with LAD LVH with secondary repolarization abnormality Anterior Q waves, possibly due to LVH Compared to ECG 01/03/2022 11:37:07 Intraventricular conduction delay now present Left ventricular hypertrophy now present Early repolarization now present Q waves now present Myocardial infarct finding no longer present Electronically Signed On 02-16-2025 11:31:46 CDT by Bri Dong Please click the below link to view image of tracing.
[2025-02-16 10:29] LABS: APPEARANCE,URINE CLEAR (CLEAR); GLUCOSE, URINE (UA) >=1000 mg/dL (NEGATIVE); LEUKOCYTE ESTERASE ,URINE NEGATIVE Leu/uL (NEGATIVE); NITRATE,URINE NEGATIVE (NEGATIVE); OCCULT BLOOD,URINE NEGATIVE (NEGATIVE)
[2025-02-16 10:34] LABS: ADD UA MICROSCOPIC YES
--- NOTE | 2025-02-16 11:00 | ERN ---
General Chief Complaint: Dizzy/Light Headed Stated Complaint: DIZZINESS Time Seen by MD: 08:43 Source: patient History of Present Illness Initial Comments IS A 59-YEAR-OLD GENTLEMAN COMING IN WITH A EPISODE OF LIGHTHEADEDNESS. HE STATES HE ATE SOME FOOD LAST NIGHT AND THIS MORNING HE TOOK HIS DIABETIC MEDICATION BECAUSE HE HAD A HEAVY MEAL AND BELIEVES THIS IS WHAT CAUSED HIM TO BE MILD DIZZY AND NAUSEOUS. HE STATES THAT THE SYMPTOMS WERE ONLY PRESENT MOMENTARILY. THROUGHOUT EMS TRANSPORT PATIENT STATES THAT HE REMAINED ASYMPTOMATIC. Allergies: Coded Allergies: No Known Drug Allergies (Unverified Allergy, Unknown, 12/01/18) Home Meds Active Scripts Cyclobenzaprine HCl (Flexeril) 10 Mg Tab, 10 MG PO TID PRN for PAIN for 4 Days, #12 TAB Prov:FREDDY RECIO V [facility] 06/12/22 Pantoprazole Sodium (Pantoprazole Sodium) 40 Mg Tablet.dr, 40 MG PO DAILY for 30 Days, #30 TAB 0 Refills Prov:BERLIN LANDAVERDE [facility] 10/01/21 Prasugrel HCl (Effient) 10 Mg Tablet, 10 MG PO DAILY for 30 Days, #30 TAB 0 Refills Prov:BERLIN LANDAVERDE [facility] 10/01/21 Atorvastatin Calcium (Atorvastatin Calcium) 80 Mg Tablet, 80 MG PO HS for 30 Days, #30 TAB 0 Refills Prov:BERLIN LANDAVERDE [facility] 10/01/21 Aspirin (ASPIRIN 81 MG ECTAB) 81 Mg Ectab, 81 MG PO DAILY for 30 Days, #30 TAB.EC 0 Refills Prov:BERLIN LANDAVERDE [facility] 10/01/21 Metoprolol Succinate (Metoprolol Succinate) 25 Mg Tab.er.24h, 25 MG PO DAILY for 30 Days, #30 TAB 0 Refills Prov:BERLIN LANDAVERDE [facility] 10/01/21 Lisinopril (Lisinopril) 2.5 Mg Tablet, 2.5 MG PO DAILY for 30 Days, #30 TAB 0 Refills Prov:BERLIN LANDAVERDE [facility] 10/01/21 Reported Medications Gabapentin (Neurontin) 300 Mg Capsule, 300 MG PO AM, CAP 01/07/22 Furosemide (Furosemide) 20 Mg Tablet, 20 MG PO AM, TAB 01/04/22 Empagliflozin (Jardiance) 25 Mg Tablet, 25 MG PO DAILY, TAB 09/22/21 Vit B Cmplx 3/FA/Vit C/Biotin (Zoya-Bradford Rx Tablet) 1 Each Tablet, 1 EACH PO DAILY, TAB 09/22/21 Past Medical History Past Medical History: CHF, Diabetes-Type II, High Cholesterol, Hypertension Medical History Other: Stent placement Past Surgical History: None Surgical History Other: CABG Family History Family History: Negative Social History Social History: Negative ROS Dictation CONSTITUTIONAL: NO CHILLS, NO FEVER, NO WEAKNESS, NO DIAPHORESIS, NO MALAISE. HEAD/FACE: NO SIGNS OF TRAUMA. EENT: NO EYE PAIN, NO BLURRED VISION, NO TEARING, NO DOUBLE VISION, NO EAR PAIN, NO EAR DISCHARGE, NO NOSE PAIN, NO NASAL CONGESTION, NO THROAT PAIN, NO THROAT SWELLING, NO MOUTH PAIN. RESPIRATORY: NO COUGH, NO ORTHOPNEA, NO SOB, NO STRIDOR, NO WHEEZING. CARDIOVASCULAR: NO CHEST PAIN, NO EDEMA, NO PALPITATIONS, NO SYNCOPE. GASTROINTESTINAL/ABDOMINAL: NO ABDOMINAL PAIN, NO CONSTIPATION, NO DIARRHEA, NAUSEA, NO VOMITING. GENITOURINARY: NO ABNORMAL DISCHARGE, NO DYSURIA, NO FREQUENT URINATION, NO HEMATURIA. NO COMPLAINTS OF PAIN IN THE GENITALS. MUSCULOSKELETAL: NO BACK PAIN, NO GOUT, NO JOINT PAIN, NO JOINT SWELLING, NO MUSCLE PAIN, NO MUSCLE STIFFNESS, NO NECK PAIN. INTEGUMENTARY: NO CHANGE IN COLOR, NO CHANGE IN HAIR/NAILS, NO DRYNESS, NO LESION, NO LUMPS, NO RASH. NEUROLOGICAL/PSYCH: NO ANXIETY, NOT DEPRESSED, NO EMOTIONAL PROBLEM, NO HEADACHE, NO NUMBNESS, NO PRE-EXISTING DEFICIT, NO HISTORY OF SEIZURES, NO TREMORS, NO WEAKNESS. HEMATOLOGIC/LYMPHATIC: NOT ANEMIC, NO HISTORY OF BLOOD CLOTS, NO APPARENT BLEEDING, NO BRUISING, GLANDS NOT SWOLLEN. ALL SYSTEMS NEGATIVE, EXCEPT NOTED. Physical Exam Physical Exam Dictation VITAL SIGNS: REVIEWED. GENERAL APPEARANCE: ALERT, ORIENTED X3, NO ACUTE DISTRESS, OBESE. HEAD AND FACE: NON-TRAUMATIC. EYES: PERRL, PINK CONJUNCTIVAS, EYELID NO TRAUMA, ANTERIOR CHAMBER CLEAR. EARS: PINNAS INTACT AND NO SIGNS OF TRAUMA OR ERYTHEMA. EAR CANALS CLEAR AND NO DISCHARGE. TMS NO ERYTHEMA. NOSE: NO DISCHARGE, NO BLEEDING. OROPHARYNX: MOUTH NORMAL, TEETH NO CARIES, TONGUE PINK. PHARYNX CLEAR, NO ERYTHEMA. TONSILS NO EXUDATES, NO ABSCESSES NOTED. MUCOUS MEMBRANE MOIST. NECK: SUPPLE, NON-TENDER, NO THYROMEGALY, NO MASSES, NO JVD, NO BRUITS. BREAST: DEFERRED. CHEST: NO TENDERNESS, NO CREPITUS, NO PARADOXICAL MOVEMENT, NO RETRACTIONS. LUNGS: CLEAR, WELL-VENTILATED, SYMMETRIC, NO RALES, NO WHEEZING, NO RHONCHI, NO STRIDOR, GOOD BREATH SOUNDS BILATERALLY. HEART: REGULAR RATE, REGULAR RHYTHM, NO MURMUR, NO GALLOPS. VASCULAR: NO PERIPHERAL EDEMA. ABDOMEN: SOFT, POSITIVE BOWEL SOUNDS, NONDISTENDED, NO GUARDING, NONTENDER, NO REBOUND, NO MASSES NO HEPATOMEGALY, NO SPLENOMEGALY, NO FARIA'S SIGN, NO HE RNIAS. RECTAL: DEFERRED. GENITAL: DEFERRED. NEUROLOGICAL: NORMAL SPEECH, GROSS MOTOR FUNCTION INTACT, GROSS SENSORY FUNCTIO N INTACT. MUSCULOSKELETAL: NECK NONTENDER, FULL RANGE OF MOTION, BACK NONTENDER, FULL RANGE OF MOTION. EXTREMITIES: NONTENDER, FULL RANGE OF MOTION. SKIN: COLOR PINK, DRY, NO TURGOR, NO RASH, NO LACERATIONS, NO ABRASIONS, NO CONTUSIONS. LYMPHATICS: DEFERRED. Results Laboratory and Microbiology Lab and Micro Result Laboratory Tests Test 02/16/25 08:58 02/16/25 10:10 White Blood Count 7.4 K/uL (4.8-10.8) Red Blood Count 4.94 MIL/uL (4.50-6.20) Hemoglobin 13.6 g/dL (14.0-18.0) L Hematocrit 41.0 % (42-54) L Mean Corpuscular Volume 83.0 fL (79-99) Mean Corpuscular Hemoglobin 27.5 pg (27.0-33.0) Mean Corpuscular Hemoglobin Concent 33.2 g/dL (32.0-36.0) Red Cell Distribution Width 14.5 % (11.0-15.5) Platelet Count 186 K/uL (130-400) Mean Platelet Volume 11.2 fL (7.5-10.5) H Immature Granulocyte % (Auto) 0.1 % (0-1) Neutrophils (%) (Auto) 76.3 % (40.0-77.0) Lymphocytes (%) (Auto) 15.9 % (21.0-51.0) L Monocytes (%) (Auto) 5.4 % (3.0-13.0) Eosinophils (%) (Auto) 1.8 % (0.0-8.0) Basophils (%) (Auto) 0.5 % (0.0-5.0) Neutrophils # (Auto) 5.7 K/uL (1.8-7.7) Lymphocytes # (Auto) 1.2 K/uL (1.0-4.8) Monocytes # (Auto) 0.4 K/uL (0.1-1.0) Eosinophils # (Auto) 0.13 K/uL (0.00-0.70) Basophils # (Auto) 0.04 K/uL (0.00-0.20) Absolute Immature Granulocyte (auto 0.01 K/uL (0-1) Nucleated Red Blood Cells 0.0 % (0.0-0.19) Sodium Level 138 mmol/L (136-145) Potassium Level 3.7 mmol/L (3.5-5.1) Chloride Level 102 mmol/L (101-111) Carbon Dioxide Level 28 mmol/L (21-32) Blood Urea Nitrogen 20 mg/dL (7-18) H Creatinine 1.1 mg/dL (0.5-1.3) Glomerular Filtration Rate Calc 76 mL/min (>90) Random Glucose 142 mg/dL (70-105) H Total Calcium 8.8 mg/dL (8.5-10.1) Magnesium Level 1.80 mg/dL (1.80-2.40) Total Creatine Kinase 213 U/L (21-232) Troponin I High Sensitivity 22 ng/L (4-75) Urine Color LIGHT-YELLOW (YELLOW) Urine Appearance CLEAR (CLEAR) Urine pH 6.5 (5.0-8.0) Urine Specific [place] 1.027 (1.001-1.031) Urine Protein NEGATIVE mg/dL (NEGATIVE) Urine Glucose (UA) >=1000 mg/dL (NEGATIVE) H Urine Ketones 20 mg/dL (NEGATIVE) H Urine Occult Blood NEGATIVE (NEGATIVE) Urine Nitrate NEGATIVE (NEGATIVE) Urine Bilirubin NEGATIVE mg/dL (NEGATIVE) Urine Urobilinogen 0.2 mg/dL (0.2-1.0) Urine Leukocyte Esterase NEGATIVE [place]/uL Urine RBC 2-5 /HPF (0-1) H Urine WBC 0-1 /HPF (0-1) Urine Bacteria None /HPF (None Seen) Labs Reviewed?: Yes EKG/XRAY/US/CT/MRI EKG Comment 02/16/2025 TIME 8:53 A.M. VENTRICULAR RATE 85 SINUS RHYTHM OR [address] WAVE ELEVATION OR DEPRESSION MDM MDM: DIFFERENTIAL DIAGNOSIS: GENERALIZED BODY WEAKNESS, DEHYDRATION, RATIONALE: TESTS CONSIDERED AND ORDERED SECONDARY TO SHARED DECISION MAKING INCLUDE: PREVIOUS OUTSIDE RECORDS REVIEWED: OLD ER VISITS. RISK OF COMPLICATION AND/OR MORBIDITY OR MORTALITY OF PATIENT MANAGEMENT: NONE MEDICATIONS-PER MEDICATION RECONCILIATION NEED FOR HOSPITALIZATION: PATIENT DOES NOT MEET CRITERIA FOR HOSPITALIZATION. NEED FOR EMERGENCY MAJOR/MINOR SURGERY: NO PATIENT IS A 59-YEAR-OLD MALE COMING IN COMPLAINING OF AN EPISODE OF VERTIGO. HE STATES THAT HE ATE A HEAVY MEAL LAST NIGHT. PER PATIENT HE FELL BETTER AFTER HE VOMITED. ED Course Orders Procedure Category Date Status Time Cbc With Differential LAB 02/16/25 Complete 08:50 Chest 1vw RAD 02/16/25 Resulted 08:50 12 Lead Ekg Tracing- EKG 02/16/25 Complete Technical 08:50 0.9%Nacl 1000ml (Ns PHA 02/16/25 Complete 1000ml) 09:00 Magnesium LAB 02/16/25 Complete 08:50 Creatine Kinase, Total LAB 02/16/25 Complete 08:50 Troponin I High LAB 02/16/25 Complete Sensitivity 08:50 Urinalysis Profile LAB 02/16/25 Complete 08:50 Basic Metabolic Panel LAB 02/16/25 Complete 08:50 Current Medications Medications (Trade) Dose Ordered Sig/Sanyt Route PRN Reason Start Time Stop Time Status Last Admin Dose Admin Sodium Chloride 1,000 ml @ 0 mls/hr ONCE ONCE IV 02/16/25 09:00 02/16/25 09:01 DC 02/16/25 09:29 Vital Signs Date Time Temp Pulse Resp B/P (MAP) Pulse Ox O2 Delivery O2 Flow Rate FiO2 02/16/25 10:04 97.5 85 16 123/78 100 Room Air* 0 21 02/16/25 08:52 97.5 85 24 129/78 100 Room Air* 0 21 02/16/25 08:37 86 16 124/83 96 Room Air 0 DX & DISP Disposition: Discharge Departure Impression: Primary Impression: Dehydration Condition: Stable Additional Instructions: FOLLOW-UP WITH PRIMARY CARE PROVIDER IN 1 TO 2 DAYS. TAKE MEDICATIONS DIRECTED HERE IN THE EMERGENCY ROOM. OKAY TO CONTINUE HOME MEDICATIONS UNLESS OTHERWISE DISCUSSED DURING YOUR VISIT IN THE EMERGENCY ROOM TODAY. RETURN TO YOUR NEAREST EMERGENCY ROOM IF SYMPTOMS WORSEN OR IF THERE IS NO IMPROVEMENT. CALL 911 IF YOU NEED IMMEDIATE ASSISTANCE. TAKE TYLENOL [id number] NEEDED AND IF NO CONTRAINDICATIONS ARE PRESENT. INCREASE ORAL HYDRATION. A WOUND CULTURE OR URINE CULTURE WAS ORDERED HERE IN THE EMERGENCY ROOM DEPARTMENT PLEASE FOLLOW-UP WITH PRIMARY CARE PROVIDER AND ADVISE THEM TO GET REPORTS FROM OUR FACILITY. IF YOU HAD ANY DIANE WRAP/SPLINTS THAT WERE APPLIED HERE, PLEASE DO NOT REMOVE THEM UNTIL YOU SEE YOUR PRIMARY CARE OR SPECIALTY. REFERRALS: Referrals: SHIREEN BONILLA MD (PCP) Time of Disposition: 11:15 RUBEN GARNICA MD Feb 16, 2025 10:59
[2025-02-16 11:38] VITALS: BP 103/64; PULSE 78; RESP 12; TEMP 97.5; O2SAT 100
== END 2025-02-16 12:42 | disposition home or self-care (01) ==
LOC: EDH 08:35
DX: E86.0 Dehydration (principal); E11.9 Type 2 diabetes mellitus without complications; E78.00 Pure hypercholesterolemia, unspecified; I11.0 Hypertensive heart disease with heart failure; I50.9 Heart failure, unspecified; Z79.02 Long term (current) use of antithrombotics/antiplatelets; Z79.82 Long term (current) use of aspirin; Z79.84 Long term (current) use of oral hypoglycemic drugs; Z79.899 Other long term (current) drug therapy; Z95.1 Presence of aortocoronary bypass graft
CPT/HCPCS: 99285; 96360; 71045; 82550; 83735; 84484; 80048; 85025; 81001; 36415; 93005; J7030